=== PATIENT | male | born 1945 | race Caucasian/White ===

== ENCOUNTER → 2016-07-31 | Day surgery (SDC) | payer OTHER ==
[~2016-07-31] MED LIST: BAYER CHEWABLE81 MG PO; BIDIL TABLET1 EACH; CARVEDILOL3.125 MG PO; FINASTERIDE5 M1 PO; LIPITOR80 MG PO; LOMOTIL WHITE2.5 M1; OMEGA-3100 MG PO; PAROXETINE HCL20 M1 PO; TRILIPIX135 MG; VYTORIN 10-40 M1 TAB; ZESTRIL2.5 MG PO
--- NOTE | ~2016-07-31 | OR ---
Unit #: [id number] #: [id number] Patient: DANNY JIMÉNEZ [id number] [address] [place], [place] [address] [id number] O MR#: [id number] NAME: DANNY JIMÉNEZ ROOM: Date of Procedure: 07/31/2016 Admission Date: 07/31/2016 Surgeon: Grant Salcido M.D. : 1945 Attending Physician: Grant Salcido M.D. Primary Care Physician: Primary Care Physician No OPERATIVE REPORT PRIMARY CARE PHYSICIAN Citlali Ramos M.D. PREOPERATIVE DIAGNOSES The patient has come for surveillance colonoscopy. He has personal history of colon polyps and family history of colon cancer in his father. PROCEDURE PERFORMED Colonoscopy up to cecum with excellent preparation and good visualization. POSTOPERATIVE DIAGNOSES The patient had a localized sigmoid and descending colon diverticulosis. Otherwise, examination was normal up to cecum. The quality of the prep was excellent. No polyps were seen. RECOMMENDATIONS Repeat colonoscopy in 5 years. SEDATION USED MAC. DESCRIPTION OF PROCEDURE Following detailed explanation of the potential risks and complications of a colonoscopy, namely perforation, bleeding, and complication related to sedation, the patient was brought to GI lab and laid in the left lateral decubitus position. A digital rectal examination was performed, which was normal. Lubricated tip of the Olympus video colonoscope was inserted through the anus and advanced under direct vision. The scope was advanced past rectosigmoid into descending colon. Multiple medium-sized diverticula were noted in this area. The scope tip was then navigated all the way up to cecum with visualization of the ileocecal valve and the appendiceal orifice. Preparation was excellent with good visualization and photodocumentation was obtained. Successive segments of the colonic mucosa were examined upon withdrawal. No polyps, angiodysplasias, or colonic masses were seen. Other than the left-sided diverticulosis, no other abnormalities were noted. The patient did not have any hemorrhoids at anal verge. The scope was then withdrawn and the patient returned to recovery area. He tolerated the procedure without any postprocedure complications. Dictated by... Unit #: [id number] #: [id number] Patient: DANNY JIMÉNEZ Yane Hunt/rick TD: 07/31/2016 22:13 JOB #: [id number] CC: Citlali Ramos M.D. OPERATIVE REPORT Page 1 of 1 X Grant Salcido MD PROCEDURE OPERATIVE NOTE
== END | disposition home or self-care (01) ==
LOC: COPS 11:20
DX: Z12.11 Encounter for screening for malignant neoplasm of colon (principal); K57.30 Diverticulosis of large intestine without perforation or abscess without bleeding; I10 Essential (primary) hypertension; E78.5 Hyperlipidemia, unspecified; I73.9 Peripheral vascular disease, unspecified; Z86.010 Personal history of colon polyps; Z80.0 Family history of malignant neoplasm of digestive organs; Z95.5 Presence of coronary angioplasty implant and graft; Z98.41 Cataract extraction status, right eye; Z98.42 Cataract extraction status, left eye; Z87.19 Personal history of other diseases of the digestive system; Z86.73 Personal history of transient ischemic attack (TIA), and cerebral infarction without residual deficits; Z79.82 Long term (current) use of aspirin; Z79.899 Other long term (current) drug therapy